=== PATIENT | male | born 1970 | race Two or more races ===

== ENCOUNTER 2020-06-04 13:27 | Emergency (ER) | payer MEDICAID, OTHER ==
[~2020-06-04] VITALS: Ht 180.3 cm; Wt 99.8 kg
[2020-06-04 13:41] VITALS: BP 149/80
[2020-06-04] MEDS ORDERED: KETOROLAC TROMETH 60MG/2ML VIAL IM ONE (14:45)
== END 2020-06-04 14:56 | disposition home or self-care (01) ==
LOC: ER 13:27
DX: M48.12 Ankylosing hyperostosis [Forestier], cervical region (principal); M54.2 Cervicalgia
CPT/HCPCS: 72040; 96372; 99283; J1885